=== PATIENT | male | born 2000 | race Caucasian/White ===

== ENCOUNTER 2020-09-30 10:44 | Day surgery (SDC) | payer BC ==
[2020-09-25 10:09] VITALS: BMI 21.8
[2020-09-30] MEDS ORDERED: ONDANSETRON 4 MG/2 ML VIAL IVPUSH PRN (11:37)
[2020-09-30] MEDS ORDERED: oxyCODONE HCL 5 MG TABLET PO PRN (11:37)
[2020-09-30] MEDS ORDERED: LACTATED RINGERS SOLUTION 1,000 ML IV SCH (11:45)
[2020-09-30] MEDS ORDERED: PROPOFOL 20 ML ONE (12:21)
[2020-09-30] MEDS ORDERED: MIDAZOLAM HCL 2 MG/2 ML SINGLE DOSE VIAL ONE ×2 (12:22)
[2020-09-30] MEDS ORDERED: DEXAMETHASONE SOD PHOSPHATE 4 MG/1 ML VIAL ONE (12:47)
[2020-09-30] MEDS ORDERED: ONDANSETRON 4 MG/2 ML VIAL ONE (12:47)
[2020-09-30] MEDS ORDERED: oxyCODONE HCL 5 MG TABLET PO ONE (14:35)
[2020-09-30] MEDS ORDERED: oxyCODONE HCL 5 MG TABLET ONE (14:39)
[2020-09-30 14:49] VITALS: PULSE 61
[2020-09-30 14:53] VITALS: TEMP 97.8
[2020-09-30 15:39] VITALS: BP 98/60
== END 2020-09-30 15:30 | disposition home or self-care (01) ==
LOC: FASU 10:44
PROVIDERS: ATTEND Orthopaedic Surgery Hand Surgery
PROC: 01N40ZZ Release Ulnar Nerve, Open Approach (ICD-10-PCS; principal; 2020-09-30 12:56)
DX: G56.22 Lesion of ulnar nerve, left upper limb (principal)
CPT/HCPCS: 94760

== ENCOUNTER 2020-11-25 11:50 | Day surgery (SDC) | payer BC ==
[2020-11-17 13:06] VITALS: BMI 21.5
[2020-11-25] MEDS ORDERED: ROPIVACAINE HCL 0.5% 30ML VIAL ONE (13:36)
[2020-11-25] MEDS ORDERED: PROPOFOL 20 ML ONE (13:41)
[2020-11-25] MEDS ORDERED: LIDOCAINE HCL/PF 2% SDV 5ML VIAL ONE (13:41)
[2020-11-25] MEDS ORDERED: MIDAZOLAM HCL 2 MG/2 ML SINGLE DOSE VIAL ONE (13:41)
[2020-11-25] MEDS ORDERED: DEXAMETHASONE SOD PHOSPHATE 4 MG/1 ML VIAL ONE (14:10)
[2020-11-25] MEDS ORDERED: ONDANSETRON 4 MG/2 ML VIAL ONE (14:10)
[2020-11-25] MEDS ORDERED: KETOROLAC TROMETHAMINE 30 MG/1 ML VIAL ONE (14:32)
[2020-11-25] MEDS ORDERED: GUM MASTIC/STORAX/MSAL/ALCOHOL 1 DRP DROPSBTL MC ONE (15:10)
[2020-11-25] MEDS ORDERED: LACTATED RINGERS SOLUTION 1,000 ML IV SCH (15:30)
[2020-11-25] MEDS ORDERED: oxyCODONE HCL 5 MG TABLET PO PRN (15:30)
[2020-11-25] MEDS ORDERED: ONDANSETRON 4 MG/2 ML VIAL IVPUSH PRN (15:30)
[2020-11-25] MEDS ORDERED: IBUPROFEN 800 MG/8 ML IJ IVPB PRN (15:30)
[2020-11-25] MEDS ORDERED: ACETAMINOPHEN 1000 MG/100 ML VIAL (NON FORMULARY) IVPB ONE (15:31)
[2020-11-25] MEDS ORDERED: ACETAMINOPHEN INJECTION 100 ML IVPB ONE (15:38)
[2020-11-25 16:21] VITALS: PULSE 62; TEMP 97.8
[2020-11-25] MEDS ORDERED: oxyCODONE HCL 5 MG TABLET ONE (16:26)
[2020-11-25 17:00] VITALS: BP 121/65
== END 2020-11-25 17:00 | disposition home or self-care (01) ==
LOC: FASU 11:50
PROVIDERS: ATTEND Orthopaedic Surgery Hand Surgery
PROC: 01N40ZZ Release Ulnar Nerve, Open Approach (ICD-10-PCS; principal; 2020-11-25 14:13)
PROC: 0RBN4ZZ Excision of Right Wrist Joint, Percutaneous Endoscopic Approach (ICD-10-PCS; 2020-11-25 14:13)
DX: G56.21 Lesion of ulnar nerve, right upper limb (principal); M24.831 Other specific joint derangements of right wrist, not elsewhere classified; M67.431 Ganglion, right wrist
CPT/HCPCS: 94760; J0131